=== PATIENT | male | born 1965 | race Caucasian/White ===

== ENCOUNTER 2019-09-01 21:18 | Emergency (ER) | payer OTHER ==
[2019-09-01] MEDS ORDERED: Sodium Chloride 0.9% 1,000 ML IV SCH (22:00)
[2019-09-01] MEDS ORDERED: HYDROmorphone 1 MG/ML Syringe IVPUSH ONE (22:22)
--- NOTE | 2019-09-01 23:07 | CRLCT ---
INDICATION: Confusion after trauma TECHNIQUE: CT head without contrast. COMPARISON: None. FINDINGS: CSF spaces: Within normal limits for age. Brain parenchyma: The monson-white differentiation is normal. No sign of mass, hemorrhage, or midline shift. Skull base and calvarium: Mucous retention cyst left maxillary sinus. The visualized orbits are grossly unremarkable. No skull fractures. IMPRESSION: Unremarkable noncontrast head CT. Please note that all CT scans at this facility use dose modulation, iterative reconstruction, and/or weight-based dosing when appropriate to reduce radiation dose to as low as reasonably achievable. Dictated by Jose Ruiz MD @ Sep 01 2019 11:04PM Signed by Dr. Jose Ruiz @ Sep 01 2019 11:06PM
--- NOTE | 2019-09-01 23:34 | CRLCT ---
INDICATION: Trauma, pain right chest and abdomen. TECHNIQUE: CT chest, abdomen and pelvis acquired with no intravenous contrast. COMPARISON: None. FINDINGS: CHEST: Mediastinum and amado: Thyroid gland unremarkable. No mediastinal hematoma. Thoracic aorta normal in caliber. Lungs and pleura: Mild pleural thickening adjacent to the patient`s 7th rib fracture. Minimal adjacent ground-glass, likely subsegmental atelectasis. Chest wall and axilla: No mass or adenopathy. Bones: Anterior fusion lower cervical spine. Ossification adjacent to the distal right clavicle at the acromioclavicular joint, appearance would favor dystrophic calcifications such as from an old injury. Right 7th rib fracture with 6 millimeters displacement posteriorly. Nondisplaced right 8th rib fracture posteriorly. Nondisplaced right 9th rib fracture posteriorly. ABDOMEN AND PELVIS: Liver: Unremarkable. Gallbladder and bile ducts: Unremarkable. Pancreas: Unremarkable. Spleen: Unremarkable. Adrenal glands: Unremarkable. Kidneys: Unremarkable. GI tract: The stomach is unremarkable. No dilated loops of large or small intestine. Vascular structures: Unremarkable. Pelvic Organs: Unremarkable. Bones: Minimal degenerative disc disease L5-S1. IMPRESSION: 1. Acute right 7th through 9th rib fractures with displacement of the right 7th rib. Adjacent pleural thickening and mild subsegmental atelectasis without definite pneumothorax. 2. No evidence of traumatic injury to the abdomen or pelvis. Please note that all CT scans at this facility use dose modulation, iterative reconstruction, and/or weight-based dosing when appropriate to reduce radiation dose to as low as reasonably achievable. Dictated by Jose Ruiz MD @ Sep 01 2019 11:07PM Signed by Dr. Jose Ruiz @ Sep 01 2019 11:32PM
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
--- NOTE | 2019-09-02 11:44 | CR ---
CHEST: Portable 09/01/2019 at 9:30 PM CLINICAL HISTORY:Right chest pain COMPARISON:None FINDINGS: The heart size, pulmonary vascularity and hilar structures are normal. No infiltrate effusion or pneumothorax is seen. IMPRESSION: No acute cardiopulmonary process.
== END 2019-09-02 02:45 | disposition home or self-care (01) ==
LOC: JP.ED 21:18
DX: S06.0X9A Concussion with loss of consciousness of unspecified duration, initial encounter (principal); S22.41XA Multiple fractures of ribs, right side, initial encounter for closed fracture; M54.5 Low back pain; R10.11 Right upper quadrant pain; Z91.041 Radiographic dye allergy status; Z79.899 Other long term (current) drug therapy; V86.56XA Driver of dirt bike or motor/cross bike injured in nontraffic accident, initial encounter
CPT/HCPCS: 36415; 70450; 71045; 71250; 74176; 80053; 81001; 85025; 96361; 96374; 99285; J1170; J7030; 99284